=== PATIENT | male | born 1930 | race Caucasian/White ===

== ENCOUNTER 2017-03-08 15:54 | Emergency (ER) | payer OTHER ==
[~2017-03-08] VITALS: Ht 180.3 cm; Wt 82.0 kg
[~2017-03-08 15:54] MED LIST: ADVAIR; ASPI81 PO; CLON0.5T PO; DIAZ2 PO; DICL50TA3 PO; DONE10TA14 OR; PHEN30TA32 PO; ROSU10 PO; TERA5CAP3 PO; TRAM50TA PO; [UNRECOGNIZED DRUG - CODE]
[2017-03-08 15:56] VITALS: BP 144/62; PULSE 108; RESP 16; TEMP 97.7; O2SAT 96
--- NOTE | 2017-03-08 16:06 | PD ---
Physical Exam Date Seen by Provider: Mar 08, 2017 Time Seen by Provider: 16:04 Narrative 86 yowm c/o facial swelling possible allergic reaction last night. itching all over. no dysphagia no sob or cp vs noted awaiting bed placement Data Data Last Documented VS Vital Signs Date Time Temp Pulse Resp B/P Pulse Ox O2 Delivery O2 Flow Rate FiO2 03/08/17 15:56 97.7 108 16 144/62 96 MDM Medical Record Reviewed: Yes Supervised Visit with TEOFILO: Yes Phil Stone Mar 08, 2017 16:06
[2017-03-08] MEDS ORDERED: HYDR50TA94 PO (16:37)
--- NOTE | 2017-03-08 16:37 | PD ---
HPI . Swollen upper lip and rash Chief Complaint: Facial Pain or Swelling Time Seen by Provider: 16:25 Travel History International Travel<30 days: No Contact w/Intl Traveler<30days: No Traveled to known affect area: No History of Present Illness HPI Patient states that he gave his dog a bath yesterday. Shortly thereafter, he developed swelling of both right upper lip and a diffuse pruritic rash. He took one Benadryl last night with some relief of the symptoms. His symptoms are better today than they were yesterday. He denies any difficulty breathing. He denies any nausea or vomiting. 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) Cancer: No Cardiac Catheterization: Yes (STENT PLACED IN THE RCA) Cardiovascular Problems: Yes (STENT) High Cholesterol: Yes Chemotherapy: No Chest Pain: Yes Congestive Heart Failure: Yes COPD: Yes Cerebrovascular Accident: Yes Coronary Artery Disease: Yes Diabetes: No Diminished Hearing: No Endocrine: No GERD: No Glaucoma: No Genitourinary: Yes Headaches: Yes Hepatitis: No Hiatal Hernia: No Hypertension: Yes Immune Disorder: No Implanted Vascular Access Dvce: Yes Kidney Stones: Yes Musculoskeletal: Yes Neurologic: Yes Psychiatric: No Reproductive: No Respiratory: Yes Migraines: No Myocardial Infarction: Yes (02-27-08) Radiation Therapy: No Renal Failure: No Seizures: Yes Sickle Cell Disease: No Sleep Apnea: Yes Thyroid Disease: No Ulcer: No PNEUMOCCOCAL Vaccine (Year): 3 Past Surgical History Abdominal Surgery: Yes (SHEBA. INGUINAL HERNIA REPAIR) AICD: No Appendectomy: Yes Arteriovenous Shunt: No Body Medical Devices: CORONARY STENT Cardiac Surgery: Yes (CARDIAC CATH WITH STENT) Cholecystectomy: No Coronary Artery Bypass Graft: No Ear Surgery: No Endocrine Surgery: No Eye Surgery: Yes (LEFT CATARACT EXTRACTION WITH IOL) Genitourinary Surgery: No Gynecologic Surgery: No Insulin Pump: No Joint Replacement: No Neurologic Surgery: Yes Oral Surgery: No Pacemaker: No Thoracic Surgery: Yes Social History Alcohol Use: Yes (EVERY OTHER DAY ) Tobacco Use: No Substance Use: Yes (MARIJUANA) Allergies-Medications (Allergen,Severity, Reaction): Coded Allergies: Beta Blockers (Verified Allergy, Severe, SWELLING ALL OVER, 03/08/17) Keflex (Verified Allergy, Severe, HIVES/THROAT SWELLING, 03/08/17) states allergic to artificial antibiotics Keppra (Verified Allergy, Mild, angioedema upper lip, 03/08/17) Reported Meds & Prescriptions Reported Meds & Active Scripts Active Reported Qvar 40 Mcg Oral Inh (Beclomethasone Dipropionate) 100 Puff/7.3 Gm Aero 100 Puff .XX Diazepam 2 Mg Tab 2 Mg PO HS Donepezil Hcl (Donepezil Hydrochloride) 10 Mg Tab 10 Mg OR DAILY@0600 Clonazepam 0.5 Mg Tab 0.5 Mg PO HS Aspirin 81 Mg Tab 81 Mg PO DAILY Terazosin Hcl (Terazosin HCl) 5 Mg Cap 5 Mg PO HS Tramadol Hcl (Tramadol HCl) 50 Mg Tab 50 Mg PO Q4HPRN Diclofenac Sodium 50 Mg Tab 50 Mg PO DIRECTED Phenobarbital 30 Mg Tab (Phenobarbital) 30 Mg Tab 60 Mg PO TID [Advair Hfa 115/21] Crestor (Rosuvastatin Calcium) 10 Mg Tab 10 Mg PO DAILY Review of Systems Except as stated in HPI: all other systems reviewed are Neg General / Constitutional: No: Fever, Chills HENT: Positive: Other (swollen lip but no swollen tongue) Respiratory: No: Shortness of Breath Gastrointestinal: No: Nausea, Vomiting Skin: Positive Rash Physical Exam Narrative GENERAL: Awake and alert and in no acute distress. SKIN: Warm and dry. Urticarial rash on the upper extremities. It is scattered. HEENT: Mild angioedema of the right upper lip. No angioedema of the tongue. CARDIOVASCULAR: Regular rate and rhythm. RESPIRATORY: No accessory muscle use. MUSCULOSKELETAL: No obvious deformities. No edema. NEUROLOGICAL: Awake and alert. No obvious cranial nerve deficits. Motor grossly within normal limits. Normal speech. PSYCHIATRIC: Appropriate mood and affect; insight and judgment normal. Data Data Last Documented VS Vital Signs Date Time Temp Pulse Resp B/P Pulse Ox O2 Delivery O2 Flow Rate FiO2 03/08/17 15:56 97.7 108 16 144/62 96 MDM Medical Decision Making Medical Screen Exam Complete: Yes Emergency Medical Condition: Yes Differential Diagnosis The differential diagnosis of the skin rash includes but is not limited to allergic urticaria, scabies, insect bites, contact dermatitis Narrative Course Patient presents complaining with a swollen lip and a rash in his dog a bath yesterday. It got better with one Benadryl last night. He is not taking any further medication. Diagnosis Primary Impression: Angioedema Qualified Code: T78.3XXA - Angioedema, initial encounter Additional Impression: Urticaria Patient Instructions: General Instructions, Urticaria (ED) Med/Other Pt SpecificInfo: Prescription(s) given Scripts Hydroxyzine HCl 50 Mg Tab50 Mg PO QID PRN (rash and swollen lip) #30 TAB Ref 0 Prov:Neha Hebert MD 03/08/17 Neha Hebert MD Mar 08, 2017 16:37
== END 2017-03-08 17:04 | disposition home or self-care (01) ==
LOC: NEPD 15:54
DX: T78.3XXA Angioneurotic edema, initial encounter (principal); L50.0 Allergic urticaria; I50.9 Heart failure, unspecified; J44.9 Chronic obstructive pulmonary disease, unspecified; I25.10 Atherosclerotic heart disease of native coronary artery without angina pectoris; I10 Essential (primary) hypertension; M19.90 Unspecified osteoarthritis, unspecified site; I25.2 Old myocardial infarction
CPT/HCPCS: 99283

== ENCOUNTER 2017-08-01 10:36 | Emergency (ER) | payer OTHER ==
[~2017-08-01] VITALS: Ht 182.9 cm; Wt 90.0 kg
[~2017-08-01 10:36] MED LIST changes: -ADVAIR; -ASPI81 PO; +ATOR20TA15; -CLON0.5T PO; -DIAZ2 PO; -DICL50TA3 PO; -DONE10TA14 OR; +ENAL5TAB; +FERR324T8; +HYDR50TA94 PO; +INFL1INJ52; +PHEN-523; +PHEN-524; -PHEN30TA32 PO; -ROSU10 PO; -TERA5CAP3 PO; -TRAM50TA PO; +ZETI10TA5; -[UNRECOGNIZED DRUG - CODE]
[2017-08-01 10:38] VITALS: BP 181/75; PULSE 104; RESP 18; TEMP 98.4; O2SAT 98
[2017-08-01 10:52] VITALS: BP 117/68; PULSE 90; RESP 21; O2SAT 95
[2017-08-01] MEDS ORDERED: ALBU6.7H INH (10:55)
--- NOTE | 2017-08-01 10:59 | PD ---
HPI Chief Complaint: Pain: Acute or Chronic Time Seen by Provider: 10:50 Travel History International Travel<30 days: No Contact w/Intl Traveler<30days: No Traveled to known affect area: No History of Present Illness HPI 87-year-old male complains of coughing body ache. Patient states the symptoms started last night. Patient states the cough is intermittent and dry cough. Patient denies any headache. Patient denies any neck pain. Patient denies any chest pain or shortness of breath. Patient has history COPD and has been using inhaler at home. Patient denies abdominal pain. Patient denies any nausea vomiting diarrhea. Patient denies any dysuria or frequency. Patient denies any fever chills. 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) Cancer: No Cardiac Catheterization: Yes (STENT PLACED IN THE RCA) Cardiovascular Problems: Yes High Cholesterol: Yes Chemotherapy: No Chest Pain: Yes Congestive Heart Failure: Yes COPD: Yes Cerebrovascular Accident: Yes Coronary Artery Disease: Yes Diabetes: No Diminished Hearing: No Endocrine: No GERD: No Glaucoma: No Genitourinary: Yes Headaches: Yes Hepatitis: No Hiatal Hernia: No Hypertension: Yes Immune Disorder: No Implanted Vascular Access Dvce: Yes Kidney Stones: Yes Musculoskeletal: Yes Neurologic: Yes Psychiatric: No Reproductive: No Respiratory: Yes Migraines: No Myocardial Infarction: Yes (02-27-08) Radiation Therapy: No Renal Failure: No Seizures: Yes Sickle Cell Disease: No Sleep Apnea: Yes Thyroid Disease: No Ulcer: No PNEUMOCCOCAL Vaccine (Year): 3 Past Surgical History Abdominal Surgery: Yes (SHEBA. INGUINAL HERNIA REPAIR) AICD: No Appendectomy: Yes Arteriovenous Shunt: No Body Medical Devices: CORONARY STENT Cardiac Surgery: Yes (CARDIAC CATH WITH STENT) Cholecystectomy: No Coronary Artery Bypass Graft: No Ear Surgery: No Endocrine Surgery: No Eye Surgery: Yes (LEFT CATARACT EXTRACTION WITH IOL) Genitourinary Surgery: No Gynecologic Surgery: No Insulin Pump: No Joint Replacement: No Neurologic Surgery: Yes Oral Surgery: No Pacemaker: No Thoracic Surgery: Yes Family History Family Myocardial Infarction: Yes Social History Alcohol Use: Yes (EVERY OTHER DAY ) Tobacco Use: No Substance Use: Yes (MARIJUANA) Allergies-Medications (Allergen,Severity, Reaction): Coded Allergies: acebutolol (Unverified Allergy, Severe, SWELLING ALL OVER, 07/14/17) atenolol (Unverified Allergy, Severe, SWELLING ALL OVER, 07/14/17) betaxolol (Unverified Allergy, Severe, SWELLING ALL OVER, 07/14/17) carvedilol (Unverified Allergy, Severe, SWELLING ALL OVER, 07/14/17) cephalexin (Unverified Allergy, Severe, HIVES/THROAT SWELLING, 07/14/17) states allergic to artificial antibiotics labetalol (Unverified Allergy, Severe, SWELLING ALL OVER, 07/14/17) metoprolol (Unverified Allergy, Severe, SWELLING ALL OVER, 07/14/17) nebivolol (Unverified Allergy, Severe, SWELLING ALL OVER, 07/14/17) onion (Unverified Allergy, Severe, Nausea/Vomiting, 07/14/17) pindolol (Unverified Allergy, Severe, SWELLING ALL OVER, 07/14/17) propranolol (Unverified Allergy, Severe, SWELLING ALL OVER, 07/14/17) sotalol (Unverified Allergy, Severe, SWELLING ALL OVER, 07/14/17) timolol (Unverified Allergy, Severe, SWELLING ALL OVER, 07/14/17) levetiracetam (Unverified Allergy, Mild, angioedema upper lip, 07/14/17) Reported Meds & Prescriptions Reported Meds & Active Scripts Active Hydroxyzine HCl 50 Mg Tab 50 Mg PO QID PRN Reported Proventil Hfa 6.7 GM Inh (Albuterol Sulfate) 90 Mcg/Act Aer 2 Puff INH Q4-6H PRN Fluzone High-Dose Trivalent Inj (Influenza Virus Vaccine) 0.5 Ml Syr Zetia (Ezetimibe) 10 Mg Tab Atorvastatin (Atorvastatin Calcium) 20 Mg Tab Phenobarbital 60 Mg Tab Phenobarbital 30 Mg Tab Ferrous Fumarate 324 Mg Tab Enalapril (Enalapril Maleate) 5 Mg Tab Review of Systems General / Constitutional: No: Fever Eyes: No: Visual changes HENT: No: Headaches Cardiovascular: No: Chest Pain or Discomfort Respiratory: Positive: Cough, No: Shortness of Breath Gastrointestinal: No: Abdominal Pain Genitourinary: No: Dysuria Musculoskeletal: Positive: Pain Skin: No Rash Neurologic: No: Weakness Psychiatric: No: Depression Endocrine: No: Polydipsia Hematologic/Lymphatic: No: Easy Bruising Physical Exam Narrative GENERAL: Well-nourished, well-developed patient. SKIN: Focused skin assessment warm/dry. HEAD: Normocephalic. EYES: No scleral icterus. No injection or drainage. Throat: Nonerythematous. NECK: Supple, trachea midline. No JVD or lymphadenopathy. No meningismus CARDIOVASCULAR: Regular rate and rhythm without murmurs, gallops, or rubs. RESPIRATORY: Breath sounds equal bilaterally. No accessory muscle use. Patient has mild expiratory wheezes bilaterally. No rhonchi. GASTROINTESTINAL: Abdomen soft, non-tender, nondistended. MUSCULOSKELETAL: No cyanosis, or edema. BACK: Nontender without obvious deformity. No CVA tenderness. Data Data Last Documented VS Vital Signs Date Time Temp Pulse Resp B/P (MAP) Pulse Ox O2 Delivery O2 Flow Rate FiO2 08/01/17 10:52 90 21 117/68 (84) 95 Room Air 08/01/17 10:38 98.4 Orders Orders Influenzae A/B Antigen (08/01/17 10:55) Chest, Single Ap (08/01/17 10:55) Albuterol-Ipratropium Neb (Duoneb Neb) (08/01/17 11:00) MDM Medical Decision Making Medical Screen Exam Complete: Yes Emergency Medical Condition: Yes Interpretation(s) 11:36 AM. Influenza AB antigen negative. Chest x-ray has chronic changes left base. Differential Diagnosis Differential diagnosis including URI, viral syndrome, bronchitis, pneumonia, acute exacerbation COPD. Narrative Course 87-year-old male cough and body ache. History of COPD. Albuterol with Atrovent unit dose treatment 1. Diagnosis Primary Impression: Bronchitis Additional Impressions: Viral syndrome COPD with acute exacerbation Patient Instructions: General Instructions Additional Instructions: Continue with albuterol treatment at home. Z-Rober as directed. Tylenol or ibuprofen for aching pain. Follow-up with personal physician. Return if worse. Med/Other Pt SpecificInfo: Prescription(s) given Scripts Azithromycin (Zithromax Z-Rober) 250 Mg Dspk 250 MG PO DIRECTED for Infection, #1 DSPK 0 Refills 500 MG (2 tabs) day 1, then 1 tab days 2-5. Prov: Clinton Nicholas MD 08/01/17 Disposition: 01 DISCHARGE HOME Condition: Stable Clinton Nicholas MD Aug 01, 2017 10:59
[2017-08-01] MEDS ORDERED: RESP: ALBUTEROL 2.5 MG/IPRATROPIUM 0.5 MG NEB (SCH) INH ONE (11:00)
[2017-08-01] MEDS ORDERED: ZITHTAB PO (11:38)
--- NOTE | 2017-08-01 11:43 | RADRPT ---
EXAM DATE/TIME: 08/01/2017 11:24 [facility] COMPARISON: No previous studies available for comparison. INDICATIONS : Cough and shortness of breath. MEDICAL HISTORY : Cerebrovascular disease. SURGICAL HISTORY : Coronary artery stent. lumbar lami ENCOUNTER: Initial ACUITY: 1 day PAIN SCORE: 0/10 LOCATION: Bilateral upper chest FINDINGS: A single view of the chest demonstrates the lungs to be symmetrically aerated without evidence of mas s, infiltrate or effusion. The cardiomediastinal contours are unremarkable. Osseous structures are intact. CONCLUSION: No acute disease. Noe Adamson MD on August 01, 2017 at 11:41 Board Certified Radiologist. This report was verified electronically.
== END 2017-08-01 12:11 | disposition home or self-care (01) ==
LOC: NEPD 10:36
DX: J44.1 Chronic obstructive pulmonary disease with (acute) exacerbation (principal); B34.9 Viral infection, unspecified
CPT/HCPCS: 71010; 87804; 94664; 99284